=== PATIENT | male | born 1995 | race Hispanic/Latino ===

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

== ENCOUNTER 2017-03-10 15:14 | Emergency (ER) | payer OTHER, SELFPAY ==
[2017-03-10 16:14] LABS: #Basophils 0.1 thou/uL (0.0-0.2); #Eosinphils 0.3 thou/uL (0.0-0.7); #Lymphocytes 2.7 thou/uL (1.20-3.40); #Monocytes 0.6 thou/uL (0.11-0.59); %Basophils 0.9 % (0.0-1.0); %Monocytes 6.7 % (0.0-4.0); %Neutrophils 58.4 % (31.0-61.0); Hemoglobin 15.6 g/dL (14.0-18.0); Mean Corpuscular HGB CONC 34.2 g/dL (32.0-36.0); Mean Corpuscular Hemoglobin 30.1 pg (25.0-35.0); Mean Corpuscular Volume 88.1 fl (77.0-87.0); Mean Platelet Volume 9.5 fL (7.4-10.4); Platelet Count 263 thou/uL (130-400); RBC Distribution Width 11.1 % (11.5-14.5); Red Blood Cell (RBC) Count 5.19 mill/uL (4.00-5.20); White Blood Cell (WBC) Count 8.6 thou/uL (4.8-10.8)
[2017-03-10] MEDS ORDERED: Sodium Chloride 0.9% 1,000 ML ONE (16:16)
[2017-03-10 16:26] LABS: Anion Gap 17 mmol/L (10-20); BUN (Urea Nitrogen) 13 mg/dL (8.4-21.0); Calc. Creatinine Clearance 0 mL/min (70-130); Calcium 9.7 mg/dL (7.8-10.44); Carbon Dioxide 24 mmol/L (22-29); Chloride 104 mmol/L (98-107); Estimated GFR-MDRD Greater than 90; Glucose 142 mg/dL (70-105); Potassium 3.6 mmol/L (3.5-5.1); Sodium 141 mmol/L (136-145)
== END 2017-03-10 17:20 | disposition home or self-care (01) ==
LOC: NAV ERS 15:14
DX: I95.1 Orthostatic hypotension (principal); K22.6 Gastro-esophageal laceration-hemorrhage syndrome; J45.909 Unspecified asthma, uncomplicated
CPT/HCPCS: 80048; 85025; 96360; J7050

== ENCOUNTER 2017-09-10 09:18 | Emergency (ER) | payer OTHER, SELFPAY ==
[2017-09-10] MEDS ORDERED: Ibuprofen 800 MG TAB ONE (09:32)
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
== END 2017-09-10 10:10 | disposition home or self-care (01) ==
LOC: NAV ERS 09:18
DX: S63.502A Unspecified sprain of left wrist, initial encounter (principal); J45.909 Unspecified asthma, uncomplicated; W18.30XA Fall on same level, unspecified, initial encounter; Y93.67 Activity, basketball

== ENCOUNTER 2018-02-14 23:17 | Emergency (ER) | payer SELFPAY ==
[2018-02-15 00:11] LABS: Bilirubin Negative (Negative); Blood, Urine Negative (Negative); Clarity Clear (Clear); Glucose, Urine (Dipstick) Negative (Negative); Leukocyte Negative (Negative); Nitrite Negative (Negative); Protein, Urine (Dipstick) Negative (Neg-Trace); Specific Gravity, Urine 1.025 (1.005-1.030); Urobilinogen 0.2 mg/dL (0.2-1.0); pH, Urine 6.5 (5.0-9.0)
== END 2018-02-15 00:21 | disposition home or self-care (01) ==
LOC: NAV ERS 23:17
DX: S39.012A Strain of muscle, fascia and tendon of lower back, initial encounter (principal); J45.909 Unspecified asthma, uncomplicated; X50.1XXA Overexertion from prolonged static or awkward postures, initial encounter
CPT/HCPCS: 81003; 96372

== ENCOUNTER 2018-03-31 20:31 | Emergency (ER) | payer SELFPAY ==
[2018-03-31] MEDS ORDERED: Ondansetron ODT 4 MG TAB ONE (20:55)
[2018-03-31] MEDS ORDERED: AMOXicillin 250 MG CAP ONE ×2 (21:20→21:24)
[2018-03-31] MEDS ORDERED: HYDROcodone/Acetaminophen 10/325 mg Tablet ONE (21:20)
== END 2018-03-31 21:25 | disposition home or self-care (01) ==
LOC: NAV ERS 20:31
DX: H66.91 Otitis media, unspecified, right ear (principal); I10 Essential (primary) hypertension; H70.91 Unspecified mastoiditis, right ear; J45.909 Unspecified asthma, uncomplicated
CPT/HCPCS: 99282; Q0162

== ENCOUNTER 2018-04-10 19:22 | Emergency (ER) | payer SELFPAY ==
[2018-04-10] MEDS ORDERED: HYDROcodone/Acetaminophen 5/325 mg Tablet ONE (19:59)
[2018-04-10] MEDS ORDERED: Amoxicillin/Potassium Clav 875 MG TAB ONE (19:59)
== END 2018-04-10 20:08 | disposition home or self-care (01) ==
LOC: NAV ERS 19:22
DX: K08.89 Other specified disorders of teeth and supporting structures (principal); R51 Headache; I10 Essential (primary) hypertension; J45.909 Unspecified asthma, uncomplicated
CPT/HCPCS: 99283

== ENCOUNTER 2018-06-13 23:48 | Emergency (ER) | payer SELFPAY | END 2018-06-14 00:15 | disposition home or self-care (01) | LOC: NAV ERS 23:48 | DX: B34.9 Viral infection, unspecified (principal); I10 Essential (primary) hypertension; J45.909 Unspecified asthma, uncomplicated | CPT/HCPCS: 99283 ==

== ENCOUNTER 2018-06-14 21:12 | Emergency (ER) | payer SELFPAY ==
[2018-06-14] MEDS ORDERED: AMOXicillin 250 MG CAP ONE (21:35)
[2018-06-14] MEDS ORDERED: predniSONE 20 MG TAB ONE (21:35)
== END 2018-06-14 21:45 | disposition home or self-care (01) ==
LOC: NAV ERS 21:12
DX: J02.0 Streptococcal pharyngitis (principal); J45.909 Unspecified asthma, uncomplicated
CPT/HCPCS: 99283; J7506

== ENCOUNTER 2018-06-27 13:46 | Emergency (ER) | payer SELFPAY ==
[2018-06-27] MEDS ORDERED: Acetaminophen 500 MG TAB ONE (14:20)
[2018-06-27] MEDS ORDERED: Ondansetron ODT 4 MG TAB ONE (14:20)
[2018-06-27] MEDS ORDERED: Ibuprofen 800 MG TAB ONE (14:21)
--- NOTE | 2018-06-27 14:54 | RAD ---
CHEST 2 VIEWS: Date: 06/27/18 HISTORY: Cough. COMPARISON: Chest radiograph dated 12/10/14. FINDINGS: Lungs are clear. No pneumothorax or effusion. Cardiac silhouette and mediastinal contours are within normal limits. IMPRESSION: No acute intrathoracic abnormality. POS: [facility]
== END 2018-06-27 15:58 | disposition home or self-care (01) ==
LOC: NAV ERS 13:46
DX: B34.9 Viral infection, unspecified (principal); J45.909 Unspecified asthma, uncomplicated
CPT/HCPCS: 71046; 87081; 87430; 87804; Q0162

== ENCOUNTER 2018-08-11 21:55 | Emergency (ER) | payer SELFPAY | END 2018-08-11 22:48 | disposition home or self-care (01) | LOC: NAV ERS 21:55 | DX: R10.32 Left lower quadrant pain (principal); I10 Essential (primary) hypertension; J45.909 Unspecified asthma, uncomplicated | CPT/HCPCS: 99284 ==

== ENCOUNTER 2019-01-19 21:18 | Emergency (ER) | payer SELFPAY | END 2019-01-19 21:43 | disposition home or self-care (01) | LOC: NAV ERS 21:18 | DX: J06.9 Acute upper respiratory infection, unspecified (principal); R11.2 Nausea with vomiting, unspecified; J45.909 Unspecified asthma, uncomplicated | CPT/HCPCS: 99281 ==

== ENCOUNTER 2020-06-25 18:46 | Emergency (ER) | payer BC, SELFPAY ==
[2020-06-25] MEDS ORDERED: Ondansetron ODT 4 MG TAB ONE (19:17)
== END 2020-06-25 19:28 | disposition home or self-care (01) ==
LOC: NAV ERS 18:46
DX: K29.70 Gastritis, unspecified, without bleeding (principal)
CPT/HCPCS: 99283; Q0162

== ENCOUNTER 2024-01-04 10:51 | Emergency (ER) | payer SELFPAY ==
[2024-01-04 12:04] LABS: #Basophils 0.1 thou/uL (0.0-0.2); #Eosinphils 0.2 thou/uL (0.0-0.7); #Lymphocytes 2.7 thou/uL (1.20-3.40); #Monocytes 0.9 thou/uL (0.11-0.59); #Neutrophils 7.1 thou/uL (1.40-6.50); %Basophils 1.1 % (0.0-1.0); %Eosinophils 1.7 % (0.0-10.0); %Lymphocytes 24.3 % (21.0-51.0); %Monocytes 8.3 % (0.0-10.0); %Neutrophils 64.6 % (42.0-75.0); Hematocrit 45.2 % (42.0-52.0); Hemoglobin 14.8 g/dL (14.0-18.0); Mean Corpuscular HGB CONC 32.8 g/dL (32.0-36.0); Mean Corpuscular Hemoglobin 29.2 pg (27.0-31.0); Mean Corpuscular Volume 89.1 fl (78.0-98.0); Mean Platelet Volume 8.5 fL (7.4-10.4); Platelet Count 269 10x3/uL (130-400); Red Blood Cell (RBC) Count 5.07 mill/uL (4.70-6.10); White Blood Cell (WBC) Count 11.1 10x3/uL (4.8-10.8)
[2024-01-04] MEDS ORDERED: Ibuprofen 800 MG TAB ONE (12:08)
[2024-01-04 12:18] LABS: ALT (SGPT) 92 U/L (8-55); AST (SGOT) 53 U/L (5-34); Albumin 4.3 g/dL (3.5-5.0); Alkaline Phosphatase 69 U/L (40-110); Anion Gap 16 mmol/L (10-20); BUN (Urea Nitrogen) 10 mg/dL (8.9-20.6); Bilirubin, Total 0.3 mg/dL (0.2-1.2); Calc. Creatinine Clearance 0 mL/min (70-130); Calcium 9.5 mg/dL (7.8-10.44); Carbon Dioxide 24 mmol/L (22-29); Chloride 105 mmol/L (98-107); Estimated GFR 124; Globulin 3.8 g/dL (2.4-3.5); Glucose 112 mg/dL (70-105); Potassium 4.1 mmol/L (3.5-5.1); Protein, Total 8.1 g/dL (6.0-8.3); Sodium 141 mmol/L (136-145); Troponin I 0.041 ng/mL (< 0.028)
[2024-01-04] MEDS ORDERED: Aspirin Chewable 81 MG TAB ONE (12:46)
[2024-01-04] MEDS ORDERED: Nitroglycerin 0.4 MG TAB 1 EACH ONE ×2 (12:47→13:22)
[2024-01-04 12:59] LABS: PTT 27.1 sec (22.9-36.1); Prothrombin Time 12.9 sec (12.0-14.7)
[2024-01-04 13:02] LABS: D-Dimer Test Less than 0.27 mcg/mL (0.27-0.43)
[2024-01-04 14:59] LABS: Troponin I 0.043 ng/mL (< 0.028)
== END 2024-01-04 15:45 | disposition short-term general hospital (02) ==
LOC: NAV ERS 10:51
DX: I21.4 Non-ST elevation (NSTEMI) myocardial infarction (principal)
CPT/HCPCS: 36415; 71045; 80053; 83880; 84484; 85025; 85379; 85610; 85730; 93005